=== PATIENT | male | born 1970 | race Caucasian/White ===

== ENCOUNTER → 2017-11-01 | Day surgery (SDC) | payer BC ==
[~2017-11-01] MED LIST: IV RINGERS,LACTATED 1000ML 1,000 ML IV; LIDOCAINE 1% PF 2 ML VIAL. ID; LIDOCAINE 2% 100 MG/5 ML SYRINGE.; MORPHINE SULFATE 4 MG/ML DISP.SYRIN. IV; ONDANSETRON PF 4 MG/2 ML VIAL. IV; PROCHLORPERAZINE 10 MG/2 ML VIAL. IV; PROPOFOL 40 ML IV; fentaNYL PF VIAL 100 MCG/2 ML VIAL IV
[2017-11-01] MEDS: IV RINGERS,LACTATED 1000ML 1,000 ML IV (08:07)
== END | disposition home or self-care (01) ==
LOC: SURG 07:26
DX: Z09 Encounter for follow-up examination after completed treatment for conditions other than malignant neoplasm (principal); K64.0 First degree hemorrhoids; Z86.010 Personal history of colon polyps; F17.210 Nicotine dependence, cigarettes, uncomplicated
CPT/HCPCS: 45378; J2704